=== PATIENT | male | born 1945 | race Caucasian/White ===

== ENCOUNTER 2017-08-12 10:27 | Emergency (ER) | payer MEDICARE ==
[~2017-08-12] VITALS: Ht 180.3 cm; Wt 89.0 kg
[~2017-08-12 10:27] MED LIST: DIAZ5TAB4 PO; DOCU-131 PO; HYDR-3245 PO; LOSA25TA5 PO; LOSA50TA6 PO; METO25TA35 PO; OXYC5TAB3 PO
[2017-08-12] MEDS ORDERED: SODIUM CHLORIDE 0.9% 1,000 ML IV ONE (10:42)
[2017-08-12] MEDS ORDERED: SODIUM CHLORIDE FLUSH 10ML SYR IVF ONE (11:00)
[2017-08-12] MEDS ORDERED: DIPH,PERTUSS(ACELL),TET VAC/PF 0.5 ML IM-VACC ONE ×2 (11:00→13:14)
[2017-08-12 11:06] LABS: BASOPHILS % (AUTO) 0 % (0-1); EOSINOPHILS # (AUTO) 0.02 x10^3/uL (0-0.4); EOSINOPHILS % (AUTO) 0 % (1-7); LYMPHOCYTES # (AUTO) 0.62 x10^3/uL (1-3.4); LYMPHOCYTES % (AUTO) 7 % (22-44); MD NO; MEAN CORPUSCULAR HEMOGLOBIN 32.3 pg (27.5-34.5); MEAN CORPUSCULAR HGB CONC 33.7 g/dL (33.2-36.2); MEAN PLATELET VOLUME 7.3 fL (7.4-10.4); MONOCYTES # (AUTO) 0.42 x10^3/uL (0.2-0.8); MONOCYTES % (AUTO) 5 % (2-9); NEUTROPHILS # (AUTO) 7.42 x10^3/uL (1.8-6.8); NEUTROPHILS % (AUTO) 88 % (42-75); PLATELET COUNT 163 x10^3/uL (130-400); RED BLOOD COUNT 3.44 x10^6/uL (4.38-5.82)
[2017-08-12 11:15] LABS: INTERNATIONAL NORMALIZED RATIO 1.01 (0.93-1.1); PROTHROMBIN TIME 10.5 Seconds (9.6-11.5)
[2017-08-12 11:28] LABS: ALBUMIN 3.3 g/dL (3.4-5.0); ANION GAP 11 mmol/L (5-15); CALCIUM 7.8 mg/dL (8.5-10.1); CHLORIDE 105 mmol/L (98-107); CREATININE 0.91 mg/dL (0.7-1.3)
[2017-08-12] MEDS ORDERED: OMNIPAQUE 350 MG/ML, 100ML BOTTLE ONE (11:58)
[2017-08-12] MEDS ORDERED: ONDANSETRON 2MG/ML, 2ML ONE (11:59)
[2017-08-12] MEDS ORDERED: ONDANSETRON 2MG/ML, 2ML IVPush ONE (12:00)
[2017-08-12] MEDS ORDERED: HYDROmorphone 2 MG/ML, 1ML ONE (12:00)
[2017-08-12] MEDS ORDERED: HYDROmorphone 2 MG/ML, 1ML IVPush PRN (12:00)
[2017-08-12 12:46] VITALS: BP 132/88
== END 2017-08-12 13:26 | disposition home or self-care (01) ==
LOC: ED 13:20
DX: S06.0X0A Concussion without loss of consciousness, initial encounter (principal); S01.81XA Laceration without foreign body of other part of head, initial encounter; S16.1XXA Strain of muscle, fascia and tendon at neck level, initial encounter; R41.3 Other amnesia; R79.1 Abnormal coagulation profile; Y08.89XA Assault by other specified means, initial encounter; Y93.89 Activity, other specified; Y92.89 Other specified places as the place of occurrence of the external cause; Y99.8 Other external cause status
CPT/HCPCS: 36415; 70450; 70486; 71260; 72125; 74177; 80048; 82040; 85025; 85610; 85730; 90471; 90715; 93005; 96374; 96375; 99285; J1170; J2405; J7030; Q9967

== ENCOUNTER 2017-11-10 10:13 | Emergency (ER) | payer MEDICARE ==
[~2017-11-10] VITALS: Ht 180.3 cm; Wt 92.1 kg
[~2017-11-10 10:13] MED LIST changes: -LOSA25TA5 PO; +LOSA25TA6 PO; -LOSA50TA6 PO; +LOSA50TA7 PO
[2017-11-10 10:22] VITALS: BP 170/107
[2017-11-10] MEDS ORDERED: CARBAMIDE PEROXIDE EAR DROPS 6.5%, 15ML LEFT EAR ONE (11:00)
[2017-11-10] MEDS ORDERED: CARBAMIDE PEROXIDE EAR DROPS 6.5%, 15ML RIGHT EAR ONE (11:00)
[2017-11-10] MEDS ORDERED: CARBAMIDE PEROXIDE EAR DROPS 6.5%, 15ML ONE (11:04)
== END 2017-11-10 12:09 | disposition home or self-care (01) ==
LOC: ED 11:17
DX: H91.93 Unspecified hearing loss, bilateral (principal)
CPT/HCPCS: 69209; 99282; 99284

== ENCOUNTER 2020-10-06 13:43 | Outpatient (CLI) | payer MEDICARE ==
[~2020-10-06 13:43] MED LIST changes: -HYDR-3245 PO; +HYDR1TAB53 PO; +LOSA25TA25 PO; -LOSA25TA6 PO; +LOSA50TA14 PO; -LOSA50TA7 PO; -OXYC5TAB3 PO; +OXYC5TAB98 PO
[2020-10-06 14:28] LABS: BASOPHILS % (AUTO) 0 % (0-1); EOSINOPHILS % (AUTO) 2 % (1-7); LYMPHOCYTES % (AUTO) 19 % (22-44); MEAN CORPUSCULAR HEMOGLOBIN 31.8 pg (27.5-34.5); MEAN CORPUSCULAR HGB CONC 34.3 g/dL (33.2-36.2); MEAN PLATELET VOLUME 8.4 fL (7.4-10.4); MONOCYTES % (AUTO) 8 % (2-9); NEUTROPHILS % (AUTO) 71 % (42-75); PLATELET COUNT 165 x10^3/uL (130-400); RED BLOOD COUNT 4.71 x10^6/uL (4.38-5.82)
[2020-10-06 14:29] LABS: ALBUMIN 3.8 g/dL (3.4-5.0); ANION GAP 3 mmol/L (5-15); CALCIUM 9.4 mg/dL (8.5-10.1); CHLORIDE 106 mmol/L (98-107)
[2020-10-06 14:40] LABS: ALANINE AMINOTRANSFERASE 26 U/L (12-78); ALKALINE PHOSPHATASE 91 U/L (45-117); BILIRUBIN,TOTAL 0.5 mg/dL (0.2-1.0); CHOL/HDL RATIO 3.3; CHOLESTEROL, TOTAL 219 mg/dL (140-239); CREATININE 1.04 mg/dL (0.7-1.3); HDL CHOL % 31 % (26-37); HDL CHOLESTEROL (DIRECT) 67 mg/dL (40-60); LDL CHOLESTEROL,CALCULATED 123 mg/dL (54-169); LDL/HDL RATIO 1.8 (0.5-3.0); TOTAL PROTEIN 7.3 g/dL (6.4-8.2); TRIGLYCERIDES 146 mg/dL (50-200); VLDL CHOLESTEROL 29 mg/dL (0-25)
== END 2020-10-06 23:59 | disposition home or self-care (01) ==
LOC: LAB 13:43
PROVIDERS: ATTEND Family Medicine
DX: Z12.5 Encounter for screening for malignant neoplasm of prostate (principal); I10 Essential (primary) hypertension; E78.5 Hyperlipidemia, unspecified; R53.83 Other fatigue
CPT/HCPCS: 36415; 80053; 80061; 84153; 84403; 84443; 85025; G0103